=== PATIENT | male | born 1960 ===

== ENCOUNTER 2017-12-24 07:08 | Day surgery (SDC) | payer OTHER ==
[2017-12-24] MEDS ORDERED: Lactated Ringer's 500 ML IV ONE (07:40)
[2017-12-24] MEDS ORDERED: Midazolam 2 MG/2 ML VIAL ONE (08:09)
[2017-12-24] MEDS ORDERED: Propofol 10 mg/ml Inj (20 ML) ONE (08:09)
[2017-12-24 08:35] VITALS: O2SAT 100
[2017-12-24 09:17] VITALS: RESP 11; TEMP 97.8
[2017-12-24 09:22] VITALS: BP 126/70; PULSE 58
--- NOTE | 2017-12-24 11:36 | CARD ---
APPROVED REPORT Date of service: 12/24/2017 EKG Measurement Heart [id number] [id number] <Conclusion> Sinus bradycardia Left anterior fascicular block NSTT wave abnormality Abnormal ECG
== END 2017-12-24 10:20 | disposition home or self-care (01) ==
LOC: H.ENDO 07:08
PROVIDERS: ATTEND Internal Medicine Gastroenterology
DX: Z12.11 Encounter for screening for malignant neoplasm of colon (principal); Z53.8 Procedure and treatment not carried out for other reasons; R94.31 Abnormal electrocardiogram [ECG] [EKG]
CPT/HCPCS: 93005; J2001; J2250; J2704; J7120